=== PATIENT | female | born 1950 | race Caucasian/White ===

== ENCOUNTER → 2020-07-26 | Outpatient (CLI) | payer MEDICARE, OTHER ==
--- NOTE | 2020-07-26 14:59 | RADIOLOGY REPORT (SQ) ---
EXAM DESCRIPTION: MRI HEAD COMBO IMAGES COMPLETED DATE/TIME: 07/26/2020 1:52 pm REASON FOR STUDY: (H91.8X2)OTHER SPECIFIED HEARING LOSS, LEFT EAR H91.8X2 OTHER SPECIFIED HEARING L OSS, LEFT EAR COMPARISON: None. TECHNIQUE: Multiplanar imaging includes non-contrasted T1, T2, FLAIR, diffusion with ADC map and pos t gadolinium contrast sequences. Additional thin slice images with and without gadolinium contrast a cquired in the posterior fossa. Images stored on PACS. CONTRAST TYPE AND DOSE: 15 mL Prohance. RENAL FUNCTION: Not indicated. ACR Type II contrast agent associated with few, if any, unconfounded cases of NSF LIMITATIONS: None. FINDINGS: ANATOMY: No anomalies. Normal vascular flow voids. Pituitary fossa normal. CSF SPACES: Atrophy induced prominence of ventricles and CSF spaces. CEREBRUM: High signal intensity lesions scattered through white matter on FLAIR imaging with distribu tion suggesting chronic micro-vascular ischemic changes. No hemorrhage. No edema, masses or mass ef fect. No enhancing lesions. POSTERIOR FOSSA: No signal alteration. No edema, masses, mass effect. There is extensive fluid signa l and enhancement throughout the entire right mastoid. Internal Auditory Canals and Cerebello-pontin e angles are normal. No enhancing lesions. Detailed imaging of the 5th, 7th, and 8th nerves and [place] within normal limits with no enhancing lesions. DIFFUSION IMAGING: Negative for acute or sub-acute infarction. ORBITS: No masses. Globes normal. PARANASAL SINUSES: No fluid levels. Mucosa normal. OTHER: No other significant finding. IMPRESSION: 1. EXTENSIVE RIGHT MASTOIDITIS. NO ABNORMAL FINDINGS IN THE RIGHT INTERNAL AUDITORY CANAL OR CEREBEL LOPONTINE ANGLE. 2. ATROPHY AND CHRONIC MICRO-VASCULAR ISCHEMIC CHANGES. TECHNICAL DOCUMENTATION: JOB ID: [id number] 2010 [employer]- All Rights Reserved Reading location - IP/workstation name: [email or web address]
== END ==
LOC: RAD 12:35
PROVIDERS: ATTEND Otolaryngology
DX: H91.8X2 Other specified hearing loss, left ear (principal); H70.91 Unspecified mastoiditis, right ear
CPT/HCPCS: 70553; 82565

== ENCOUNTER 2020-08-03 17:40 | Emergency (ER) | payer MEDICARE, OTHER ==
[2020-08-03 17:53] VITALS: BP 152/79
--- NOTE | 2020-08-03 18:10 | ER Document Report ---
ED Medical Screen (RME) - General Chief Complaint: Fever Stated Complaint: EAR PAIN Time Seen by Provider: 08/03/20 18:01 Primary Care Provider: TIFFANIE KENDRICK MD [Primary Care Provider] - Follow up as needed Mode of Arrival: Ambulatory Information source: Patient Notes: 70-year-old female presented to ED for a 2-month ear pain. She is a patient of Dr. Ng. She has had ear tubes she has been on antibiotics and today when she had a fever of [address] Ng he told her to go straight to the emergency room for this high of a fever. She is alert oriented respirations regular nonlabored speaking in full sentences. There is no infection in the right ear at this time. She has had ear tubes recently. She states she had a hysterectomy when she was 23 breast lumpectomy both sides of fractured arm with repair and high blood pressure. She is alert oriented respirations regular nonlabored speaking in full sentences. She does smoke a pack a day and occasionally drinks wine. I have greeted and performed a rapid initial assessment of this patient. A comprehensive ED assessment and evaluation of the patient, analysis of test res ults and completion of medical decision making process will be conducted by an additional ED providers. - Related Data Allergies/Adverse Reactions: codeine Allergy (Verified 08/03/20 17:56) Penicillins Allergy (Verified 08/03/20 17:56) Sulfa (Sulfonamide Antibiotics) Allergy (Verified 08/03/20 17:56) sulfamethoxazole [From Bactrim] Allergy (Verified 08/03/20 17:56) trimethoprim [From Bactrim] Allergy (Verified 08/03/20 17:56) Home Medications: htn Past Medical History - Social History Chew tobacco use (# tins/day): No Frequency of alcohol use: Occasional Drug Abuse: None Physical Exam - Vital signs Vitals: Temp Pulse Resp BP Pulse Ox 98.5 F 66 20 152/79 H 96 08/03/20 17:50 08/03/20 17:50 08/03/20 17:50 08/03/20 17:50 08/03/20 17:50 Course - Vital Signs Vital signs: Temp Pulse Resp BP Pulse Ox 98.5 F 66 20 152/79 H 96 08/03/20 17:56 08/03/20 17:50 08/03/20 17:50 08/03/20 17:50 08/03/20 17:50 Doctor's Discharge - Discharge Referrals: TIFFANIE KENDRICK MD [Primary Care Provider] - Follow up as needed
--- NOTE | 2020-08-03 18:33 | RADIOLOGY REPORT (SQ) ---
EXAM DESCRIPTION: CHEST 2 VIEWS IMAGES COMPLETED DATE/TIME: 08/03/2020 6:25 pm REASON FOR STUDY: Elevated fever chills COMPARISON: None. EXAM PARAMETERS: NUMBER OF VIEWS: two views TECHNIQUE: Digital Frontal and Lateral radiographic views of the chest acquired. RADIATION DOSE: NA LIMITATIONS: none FINDINGS: LUNGS AND PLEURA: No opacities, masses or pneumothorax. No pleural effusion. MEDIASTINUM AND HILAR STRUCTURES: No masses or contour abnormalities. HEART AND VASCULAR STRUCTURES: Heart normal size. No evidence for failure. BONES: No acute findings. HARDWARE: None in the chest. OTHER: No other significant finding. IMPRESSION: NO ACUTE RADIOGRAPHIC FINDING IN THE CHEST. TECHNICAL DOCUMENTATION: JOB ID: [id number] 2010 [employer]- All Rights Reserved Reading location - IP/workstation name: [email or web address]
[2020-08-03 19:10] LABS: ABSOLUTE BASOPHILS # (AUTO) 0.1 10^3/uL (0.0-0.2); ABSOLUTE LYMPHOCYTES (AUTO) 3.5 10^3/uL (0.5-4.7); ABSOLUTE MONOCYTES (AUTO) 0.5 10^3/uL (0.1-1.4); ABSOLUTE NEUT (AUTO) 4.8 10^3/uL (1.7-8.2); BASOPHILS % (AUTO) 0.7 % (0-2); EOSINOPHILS % (AUTO) 0.5 % (0-6); HEMATOCRIT 37.2 % (36.0-47.0); HEMOGLOBIN 13.5 g/dL (12.0-15.5); LYMPHOCYTES % (AUTO) 38.8 % (13-45); MEAN CORPUSCULAR HEMOGLOBIN 33.5 pg (27.0-33.4); MEAN CORPUSCULAR HGB CONC 36.3 g/dL (32.0-36.0); MEAN CORPUSCULAR VOLUME 92 fl (80-97); MONOCYTES % (AUTO) 6.1 % (3-13); PLATELET COUNT 276 10^3/uL (150-450); RED BLOOD COUNT 4.04 10^6/uL (3.72-5.28); RED CELL DISTRIBUTION WIDTH 13.2 % (11.5-14.0); SEGMENTED NEUTROPHILS % (AUTO) 53.9 % (42-78); TOTAL CELLS COUNTED % (AUTO) 100 %; WHITE BLOOD COUNT 8.9 10^3/uL (4.0-10.5)
[2020-08-03 19:25] LABS: APPEARANCE,URINE SLIGHTLY-CLOUDY; BILIRUBIN,URINE NEGATIVE (NEGATIVE); COLOR,URINE AMBER; GLUCOSE, URINE NEGATIVE (NEGATIVE); KETONES,URINE TRACE mg/dL (NEGATIVE); LEUKOCYTE ESTERASE,URINE MODERATE (NEGATIVE); NITRITE,URINE NEGATIVE (NEGATIVE); PROTEIN,URINE 30 mg/dL (NEGATIVE); URINE SPECIFIC GRAVITY 1.024
[2020-08-03 19:33] LABS: ALBUMIN 4.7 g/dL (3.5-5.0); ALKALINE PHOSPHATASE 78 U/L (38-126); ANION GAP 12 (5-19); ASPARTATE AMINO TRANSFERASE 24 U/L (14-36); BILIRUBIN,DIRECT 0.2 mg/dL (0.0-0.4); BILIRUBIN,TOTAL 1.1 mg/dL (0.2-1.3); BLOOD UREA NITROGEN 10 mg/dL (7-20); CARBON DIOXIDE 29 mmol/L (22-30); CHLORIDE 93 mmol/L (98-107); GLUCOSE 110 mg/dL (75-110); TOTAL PROTEIN 7.1 g/dL (6.3-8.2)
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
== END 2020-08-03 23:59 | disposition left against medical advice (07) ==
LOC: ER 17:40
DX: R50.9 Fever, unspecified (principal); H92.01 Otalgia, right ear; Z53.20 Procedure and treatment not carried out because of patient's decision for unspecified reasons; Z88.0 Allergy status to penicillin; Z88.2 Allergy status to sulfonamides
CPT/HCPCS: 36415; 71046; 80053; 81001; 85025; 87040; 87086; 99281